=== PATIENT | male | born 1995 | race Caucasian/White ===

== ENCOUNTER 2017-08-20 12:44 | Emergency (ER) | payer BC, OTHER ==
[2017-08-20] MEDS ORDERED: Ibuprofen 800 MG TAB ONE (13:52)
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
== END 2017-08-20 14:53 | disposition home or self-care (01) ==
LOC: ERS 12:44
DX: V24.4XXA Motorcycle driver injured in collision with heavy transport vehicle or bus in traffic accident, initial encounter; S80.02XA Contusion of left knee, initial encounter; F32.9 Major depressive disorder, single episode, unspecified; F17.290 Nicotine dependence, other tobacco product, uncomplicated